=== PATIENT | female | born 1965 | race Caucasian/White ===

== ENCOUNTER → 2017-02-19 | Outpatient (CLI) | payer BC | LOC: BRMIMAGING 15:10 | PROVIDERS: ATTEND Obstetrics & Gynecology | DX: Z12.31 Encounter for screening mammogram for malignant neoplasm of breast (principal) | CPT/HCPCS: G0202 ==

== ENCOUNTER 2018-01-08 13:35 | Emergency (ER) | payer BC ==
--- NOTE | 2018-01-08 14:01 | EDPHY ---
H & P Stated Complaint: RIGHT SHOULDER INJURY OCCURRED 1230 TODAY WHEN FELL OUT OF SHOWER Source: Patient, Family Exam Limitations: No limitations - Personal History LMP (Females 10-55): 22-28 Days Ago - Medical/Surgical History Hx Asthma: No Hx Chronic Respiratory Disease: No Hx Diabetes: No Hx Cardiac Disease: No Hx Renal Disease: No Hx Cirrhosis: No Hx Alcoholism: No Other PMH: DEPRESSION, FOOT SURG - Family History Significant Family History: No pertinent family hx - Social History Smoking Status: Never smoked Alcohol Use: Sober Drug Use: None Time Seen by Provider: 01/08/18 13:44 HPI/ROS: CHIEF COMPLAINT: Right shoulder pain HISTORY OF PRESENT ILLNESS: The patient is a 53-year-old female who slipped out of the shower and fell onto her right elbow causing an axial load to her right shoulder. This happened about an hour and half ago. She has pain "everywhere" on her right shoulder. No neck or head pain. No loss of consciousness. No chest pain. She is not concerned about her elbow and has full range of motion. Normal pulses and sensation. No previous she injuries to the shoulder. Severity: Severe pain Modifying factors: Movement REVIEW OF SYSTEMS: Constitutional: denies: chills, fever, recent illness, recent injury EENTM: denies: blurred vision, double vision, nose congestion Respiratory: denies: cough, shortness of breath Cardiac: denies: chest pain, irregular heart rate, lightheadedness, palpitations Gastrointestinal/Abdominal: denies: abdominal pain, diarrhea, nausea, vomiting, blood streaked stools Genitourinary: denies: dysuria, frequency, hematuria, pain Musculoskeletal: See HPI Skin: denies: lesions, rash, jaundice, bruising Neurological: denies: headache, numbness, paresthesia, tingling, dizziness, weakness Hematologic/Lymphatic: denies: blood clots, easy bleeding, easy bruising Immunologic/allergic: denies: HIV/AIDS, transplant 10 systems reviewed and negative except as noted EXAM: GENERAL: Well-appearing, obese and in no acute distress. HEAD: Atraumatic, normocephalic. EYES: Pupils equal round and reactive to light, extraocular movements intact, sclera anicteric, conjunctiva are normal. ENT: TMs normal, nares patent, oropharynx clear without exudates. Moist mucous membranes. NECK: Normal range of motion, supple without lymphadenopathy or JVD. LUNGS: Breath sounds clear to auscultation bilaterally and equal. No wheezes rales or rhonchi. HEART: Regular rate and rhythm without murmurs, rubs or gallops. ABDOMEN: Soft, nontender, normoactive bowel sounds. No guarding, no rebound. No masses appreciated. BACK: No CVA tenderness, no spinal tenderness, step-offs or deformities EXTREMITIES: Right shoulder pain, no swelling or deformity. No point tenderness. Pain with range of motion anteriorly or laterally with elevation. Normal strength and sensation and pulses distally. NEUROLOGICAL: Cranial nerves II through XII grossly intact. Normal speech, normal gait. 5/5 strength, normal movement in all extremities, normal sensation , normal reflexes PSYCH: Normal mood, normal affect. SKIN: Warm, dry, normal turgor, no visible rashes or lesions. (Shiva Bhakta) Constitutional: Initial Vital Signs Temperature (C) 36.5 C 01/08/18 13:40 Heart Rate 68 01/08/18 13:40 Respiratory Rate 18 01/08/18 13:40 Blood Pressure 158/76 H 01/08/18 13:40 O2 Sat (%) 95 01/08/18 13:40 O2 Delivery Mode Room Air Allergies/Adverse Reactions: No Known Allergies Allergy (Unverified 01/08/18 13:40) Home Medications: Medication Instructions Recorded Paxil 01/08/18 Medical Decision Making - Diagnostics Imaging: Discussed imaging studies w/ body recall instructor Radiologist Procedures: Procedure: Splint placement. A arm sling splint was applied. After application of the splint I returned and re-examined the patient. The splint was adequately immobilizing the joint and distal to the splint the patient's circulation and sensation was intact. ( Shiva Bhakta) ED Course/Re-evaluation: We reviewed the x-ray images. I do not see any acute fractures although there is some abnormal features. No dislocation. She denies elbow pain or pain with range of motion. I suspect soft tissue injury. She has been placed in a sling. I received report from radiology who is unsure as well whether not there is a fracture. We agreed to perform a CT scan of the shoulder. I will transfer care to Dr. Sandy at shift change. (Shiva Bhakta) Differential Diagnosis: Partial list of the Differential diagnosis considered include but were not limited to; rotator cuff injury, contusion, humerus fracture, clavicle fracture , AC separation and although unlikely based on the history and physical exam, I also considered dislocation, infection, acute coronary disease, rib fracture. I discussed these differential diagnoses and the plan with the patient as well as the usual and expected course. The patient understands that the diagnosis is provisional and that in medicine we are not always correct and that further workup is often warranted. Usual and customary warnings were given. All of the patient's questions were answered. The patient was instructed to return to the emergency department should the symptoms at all worsen or return, otherwise to followup with the physician as we discussed. (Shiva Bhakta) Other Provider: Care assumed at change of shift. D/w off going physician. Chart reviewed. Pt interviewed and examined. Concur with the above history. At the time I assumed care, she was back from CT scan awaiting report. The plain film had suggest an avulsion fracture off the glenohumeral joint surface itself. However, CT scan films reviewed by me and report per the radiologist was that in fact films were negative for fracture. Given the mechanism of injury I believe were dealing with a shoulder separation though given her body habitus is a little hard to specifically isolate the coracoclavicular ligament. Thus she will be treated with a sling and over-the- counter analgesics such as Tylenol and ibuprofen which have gone over extensively. Note, she has no contraindications to Tylenol or ibuprofen.She will be seen by family physician the week for follow-up and consideration of physical therapy. Also, I have given the name of the orthopedist destination specialist if indeed she is referral. (Jose Sandy) Departure - Departure Disposition: Home, Routine, Self-Care Clinical Impression: Right shoulder pain Qualifiers: Chronicity: acute Qualified Code(s): M25.511 - Pain in right shoulder Shoulder separation Qualifiers: Encounter type: initial encounter Laterality: right Qualified Code(s): S43.004A - Unspecified dislocation of right shoulder joint, initial encounter Condition: Fair Instructions: Shoulder Pain (ED) Additional Instructions: For your pain: Tylenol and Advil works well together in combination: 1300 mg Extended Release Tylenol and 400 mg Advil every 8 hours as needed for the pain Ice Shoulder Separation Sling on at all times except when you shower. Sleep sitting up at firest, wearing sling Follow up PCP or Ortho in the next week, see referral. No driving - after all, you have a sling on!! Referrals: NONE *PRIMARY CARE P,. [Primary Care Provider] - As per Instructions Karri Pitts MD [Medical Doctor] - 5-7 days, call for appt. Stand Alone Forms: Work Limited Duty
[2018-01-08 15:58] VITALS: BP 169/89
== END 2018-01-08 15:36 | disposition home or self-care (01) ==
LOC: CED 13:35
DX: S43.004A Unspecified dislocation of right shoulder joint, initial encounter (principal); W01.0XXA Fall on same level from slipping, tripping and stumbling without subsequent striking against object, initial encounter; Y93.E1 Activity, personal bathing and showering; Y92.002 Bathroom of unspecified non-institutional (private) residence as the place of occurrence of the external cause; Y99.9 Unspecified external cause status
CPT/HCPCS: 73030-PO; 73200-PO; A4565

== ENCOUNTER → 2018-04-19 | Outpatient (CLI) | payer BC | LOC: BRMIMAGING 15:07 | PROVIDERS: ATTEND Obstetrics & Gynecology | DX: Z12.31 Encounter for screening mammogram for malignant neoplasm of breast (principal) ==